=== PATIENT | male | born 1965 | race Caucasian/White ===

== ENCOUNTER 2020-06-29 12:27 | Outpatient (REF) | payer BC, SELFPAY ==
[2020-06-29 14:01] LABS: MANUAL DIFF FLAG NO
[2020-06-29 14:12] LABS: Basophils Absolute Auto 0.1 X10*3/uL (0.0-0.2); Basophils Percent Auto 0.7 % (0-2); Eosinophils Absolute Auto 0.2 X10*3/uL (0.0-0.4); Eosinophils Percent Auto 2.9 % (0-4); Hematocrit 44.9 % (42-52); Hemoglobin 14.7 g/dl (14.0-18.0); Imm Gran Abs Auto 0.03 X10*3/uL (0.00-0.03); Imm Gran Pct Auto 0.4 % (0.0-0.4); Lymphocytes Percent Auto 24.9 % (20-40); Mean Corpuscular HGB Conc 32.7 g/dl (31.0-36.0); Mean Corpuscular Hemoglobin 31.5 pg (27.0-33.0); Mean Corpuscular Volume 96.4 fL (80-98); Mean Platelet Volume 11.6 fL (9.4-12.4); Monocytes Absolute Auto 0.8 X10*3/uL (0.1-1.2); Monocytes Percent Auto 9.9 % (2-11); Neutrophils Percent Auto 61.2 % (45-73); Platelet Count 200 X10*3/uL (160-400); Red Blood Count 4.66 X10*6/uL (4.60-5.80); Red Cell Distribution Width 12.6 % (11.0-16.0); White Blood Count 8.2 X10*3/uL (4.8-10.8)
[2020-06-29 14:39] LABS: Glucose Urine UA NEG (NEG); Leukocyte Esterase Urine NEG (NEG); Nitrite Urine NEG (NEG); Urine Blood NEG (NEG); Urine Ketones NEG (NEG); Urine Protein NEG (NEG-TRACE)
[2020-06-29 14:40] LABS: Appearance Urine CLEAR; Color Urine YELLOW
[2020-06-29 14:50] LABS: Alanine Aminotransferase 31 U/L (0-40); Alkaline Phosphatase 84 U/L (39-117); Anion Gap 12 (12-20); Aspartate Amino Transferase 19 U/L (5-37); Bilirubin Total 0.4 mg/dL (0.0-1.0); Blood Urea Nitrogen 14 mg/dL (9-16); Carbon Dioxide 31 mmol/L (22-29); Chloride 101 mmol/L (96-108); Cholesterol 177 mg/dL; Estimated Glomerular Filt Rate > 60; Glucose Random 100 mg/dL (60-115); HDL Cholesterol 44 mg/dL; LDL Cholesterol Calculated 93 mg/dl; Potassium 4.9 mmol/l (3.3-5.1); Sodium 139 mmol/L (135-145); Total Protein 7.2 g/dL (6.5-8.0); Triglycerides 201 mg/dL
[2020-06-29 14:58] LABS: Free T4 (Free Thyroxine) 0.78 ng/dL (0.71-1.85); Prostate Specific Antigen 1.94 ng/mL (<0.05-4.0)
== END 2020-06-29 12:28 | disposition home or self-care (01) ==
LOC: HO.LAB 12:27
PROVIDERS: PCP Internal Medicine; Visit Provider Internal Medicine
DX: Z00.00 Encounter for general adult medical examination without abnormal findings (principal); E06.9 Thyroiditis, unspecified
CPT/HCPCS: 36415; 80053; 80061; 81003; 84153; 84439; 84443; 85025

== ENCOUNTER 2021-04-12 11:35 | Outpatient (REF) | payer BC, SELFPAY ==
[2021-04-12 13:21] LABS: Erythrocyte Sedimentation Rate 51 MM/HR (0-15)
[2021-04-12 13:23] LABS: Uric Acid 6.4 mg/dL (3.4-7.0)
[2021-04-12 13:35] LABS: Rheumatoid Factor 51.7 IU/mL (<15.0)
[2021-04-13 13:37] LABS: CRP High Sensitivity >10.0 mg/L
[2021-04-17 14:37] LABS: Anti Nuclear Antibody Pattern Nuclear, Homogeneous; Anti Nuclear Antibody Screen POSITIVE (NEGATIVE)
[2021-04-18 15:06] LABS: HLA B27 Negative (Negative)
== END 2021-04-12 11:36 | disposition home or self-care (01) ==
LOC: HO.LAB 11:35
PROVIDERS: PCP Internal Medicine; Visit Provider Physician Assistant Medical
DX: M25.541 Pain in joints of right hand (principal)
CPT/HCPCS: 36415; 84550; 85652; 86038; 86039; 86141; 86431; 86812

== ENCOUNTER 2022-03-01 06:02 | Emergency (ER) | payer BC, SELFPAY ==
--- NOTE | ~2022-03-01 | XR_ITS ---
EXAMINATION: XR ELBOW, LEFT CLINICAL INFORMATION: Pain. COMPARISON: None TECHNIQUE: AP, lateral, and oblique views of the left elbow. FINDINGS: Nondisplaced, oblique fracture through the posterior/ulnar aspect of the radial head contacting the articular surface. No dislocation. Mild ulnotrochlear joint space narrowing. Tiny marginal osteophytes. No osseous erosion. Moderate elbow joint effusion. XR/XR elbow LT min 3V IMPRESSION: 1. Nondisplaced, oblique fracture through the posterior/ulnar aspect of the radial head. Moderate elbow joint effusion. 2. Mild osteoarthritis.
[2022-03-01 06:22] VITALS: BP 156/111; PULSE 98; RESP 16; TEMP 36.7; O2SAT 99; BMI 28.5
--- NOTE | 2022-03-01 06:42 | ECG_ITS ---
Test Reason : L ARM PAIN Blood Pressure : / mmHG Vent. Rate : 097 BPM Atrial Rate : 097 BPM P-R Int : 124 ms QRS Dur : 094 ms QT Int : 360 ms P-R-T Axes : 054 -23 -01 degrees QTc Int : 457 ms Sinus rhythm with Premature atrial complexes Moderate voltage criteria for LVH, may be normal variant ( R in aVL , Hugo product ) Borderline ECG No previous ECGs available Referred By: Jordyn Hernandez Electronically Signed By:PRAMOD CLEARY
--- NOTE | 2022-03-01 07:24 | ED.EXTPRO ---
HPI - Extremity Problem General Chief complaint: Extremity Injury, Upper Stated complaint: L elbow locked Time Seen by Provider: 03/01/22 06:41 Source: patient Mode of arrival: ambulatory History of Present Illness HPI Narrative: 56-year-old male with history of hypertension and RA presents for left elbow pain and the sensation that is elbow has ?locked?. Patient denies any traumatic event to that left elbow but does report that he has been off of his RA medication due to a lapse and misunderstanding with his insurance but he is currently restarted his RA medication but did take prednisone during the lapse in medications. He denies any numbness or tingling to the distal hand and is right-hand dominant. Patient denies any headache, dizziness, chest pain/palpitations, and denies any shortness of breath and states that he took his blood pressure medication this morning. Related Data Allergies Allergy/AdvReac Type Severity Reaction Status Date / Time Unable to Assess Allergy Verified 03/01/22 06:41 Review of Systems Review of Systems: Pertinent positives and negatives as stated in HPI 10 point review of systems is otherwise negative. PMFSH Past Medical History Source: nursing notes reviewed Social History Social History Advance Directives: No Advance Directives Information Provided: No Physical Exam Vital Signs: Vital Signs: Last Vital Signs Temp 98.1 F 03/01/22 06:22 Pulse 98 03/01/22 06:22 Resp 16 03/01/22 06:22 BP 156/111 H 03/01/22 06:22 Pulse Ox 99 03/01/22 06:22 O2 Del Method 03/01/22 06:22 BMI result Body Mass Index 28.5 VITAL SIGNS: Reviewed. GENERAL: Well developed, well nourished, in no acute distress. HEAD: Normocephalic/atraumatic EYES: PERRLA, EOMI EARS: Ext canals without abnormality OROPHARYNX: no oral lesions noted, posterior pharynx clear LUNGS: Normal breath sounds. No adventitious sounds or accessory muscle use. SpO2<99> CARDIOVASCULAR: Regular rate and rhythm without noted murmurs, no JVD or lower extremity edema. ABDOMEN: Soft, non-tender, non-distended with bowel sounds. MUSCULOSKELETAL: No tenderness, deformities, or effusions noted on gross inspection. EXTREMITIES: No cyanosis, clubbing or edema; LEFT ELBOW: Mild swelling without erythema, distal pulses and sensation are intact.. SKIN: Inspection of the skin reveals no rashes NEUROLOGIC: Alert and oriented x 4. Strength and sensation to light touch were grossly intact x 4. Course Course Course Narrative: 56-year-old male with history and clinical presentation consistent with steroid induced asymptomatic hypertension, patient received additional blood pressure medication here in the emergency room. In addition, on review of imaging studies patient appears to have an oblique fracture of the radial head. Patient was informed of all results and findings and understands that he will need to follow-up with primary care provider, corrections lieutenant, and that he will be provided with a referral to see Orthopedics. MDM - Extremity (Nontraumatic) ECG Data Attestation EKG: I personally reviewed and interpreted this ECG as follows: Prior ECG tracings: not available for review Interpretation: Sinus rhythm, HR-97, no STEMI, RI/QRS/QTC is within normal limits. Discharge Plan Discharge Clinical Impression: Fracture of head of left radius Patient Disposition: Home, Self-Care Additional Instructions: 1. Resume all home medications as prescribed. 2. Apply ice to unexposed skin, 10-15 minutes, 3 to 4 times a day. 3. Keep left upper extremity in the sling at all times and call the office of the orthopedic referral that is provided to you below. 4. Tylenol 1000 mg, orally, every 6 hours as needed for pain control. Do not exceed 4000 mg within 24 hours. Ibuprofen 400 mg, orally with milk or food, every 6 hours as needed for additional pain relief. This medication can be taken with Tylenol. 5. Please call the office of both your primary care provider as well as your corrections lieutenant to inform them of this fracture as there are concerns that this was not due to a traumatic injury. Return to the ER for worsening symptoms. Referrals: Fortino Paris MD [Primary Care Provider] - (Patient has and atraumatic left elbow fracture with history of RA. He has been provided with an orthopedic referral.) Woo Dennis MD [Physician] - (56-year-old male with history of RA, seen and treated for nondisplaced/atraumatic left elbow fracture of the radial head. He was placed in the sling.) [facility] [Outside] Stand Alone Forms: Work/School Release
[2022-03-01] MEDS: Acetaminophen 325 MG TABLET 975 MG PO (07:37)
[2022-03-01] MEDS: amLODIPine Besylate 2.5 MG TABLET 7.5 MG PO (07:37)
[2022-03-01] MEDS: Ketorolac Tromethamine 15 MG/ML VIAL IM (07:38)
[2022-03-01 08:10] VITALS: BP 163/94; PULSE 78; RESP 16
== END 2022-03-01 08:05 | disposition home or self-care (01) ==
PROVIDERS: Emergency Provider Student in an Organized Health Care Education/Training Program; PCP Internal Medicine
DX: S52.125A Nondisplaced fracture of head of left radius, initial encounter for closed fracture (principal); X58.XXXA Exposure to other specified factors, initial encounter; Y93.9 Activity, unspecified; Y92.9 Unspecified place or not applicable; Y99.9 Unspecified external cause status
CPT/HCPCS: 73080; 93005; 96372; 99284; J1885

== ENCOUNTER 2022-03-16 | Outpatient (REF) | payer BC, SELFPAY ==
--- NOTE | ~2022-03-16 | XR_ITS ---
EXAMINATION: XR ELBOW, LEFT CLINICAL INFORMATION: Pain. COMPARISON: Radiographs dated 03/01/2022. TECHNIQUE: AP, lateral, and oblique views of the left elbow. FINDINGS: The bones and soft tissues are normal. No fracture or joint effusion. The radial head fracture is less well appreciated than was seen previously. Alignment is anatomic. Joint spaces are maintained. XR/XR elbow LT min 3V IMPRESSION: The previously described left radial head fracture is not seen with certainty. No significant joint effusion is noted.
== END 2022-03-16 00:01 | disposition home or self-care (01) ==
LOC: HO.HOSX
PROVIDERS: Visit Provider Physician Assistant
DX: M25.522 Pain in left elbow (principal)
CPT/HCPCS: 73080

== ENCOUNTER 2022-04-16 | Outpatient (REF) | payer BC, SELFPAY ==
--- NOTE | ~2022-04-16 | XR_ITS ---
EXAMINATION: XR ELBOW, LEFT CLINICAL INFORMATION: Pain COMPARISON: Previous x-ray March 2022 TECHNIQUE: AP, lateral, and oblique views of the left elbow. FINDINGS: The previously identified radial head fracture is not well appreciated. There may be an oblique nondisplaced fracture of the posterior radial head appreciated on the lateral view only. Bone alignment is normal. There is no joint effusion. XR/XR elbow LT min 3V IMPRESSION: Previously identified radial head fracture not well appreciated.
== END 2022-04-16 00:01 | disposition home or self-care (01) ==
LOC: HO.HOSX
PROVIDERS: Visit Provider Physician Assistant
DX: M25.522 Pain in left elbow (principal)
CPT/HCPCS: 73080

== ENCOUNTER → 2025-01-15 12:51 | Outpatient (REF) | payer BC, SELFPAY ==
--- OUTSIDE RECORDS SUMMARY | 2025-01-15 12:53 | XMS_ITS | Clinical Summary ---
Author Organization [facility] Address [address] [place] [address] Care Team Providers Care Spiral Machine Operator Name Role Phone Fortino Paris MD Primary Care Provider [phone] Allergies No known active allergies Medications losartan (COZAAR) 100 MG tablet Take 100 mg by mouth daily. 8 Active sildenafil (REVATIO) 20 MG tabletIndications: Erectile dysfunction, unspecified erectile dysfunction type Take 3-5 tabs one hour before sexual activity as directed, max 5 tabs per day 50 tablet 2 9 Active sildenafil (VIAGRA) 100 MG tabletIndications: Erectile dysfunction due to arterial insufficiency TAKE 1/2 TO 1 TAB ONE HOUR BEFORE ACTIVITY DIRECTED (MAX 1 TAB PER DAY) 4 tablet 9 9 Active Active Problems No known active problems Family History Medical History Relation Name Comments Arthritis Father Hypertension Father Kidney disease Father Relation Name Status Comments Father Alive Mother Alive Social History Tobacco Use Types Packs/Day Years Used Date Smoking Tobacco: Every Day Smokeless Tobacco: Never Comments:cigar 1-2 day Alcohol Use Standard Drinks/Week Comments Yes 0 (1 standard drink = 0.6 oz pur e alcohol) 40 oz a day Sex and Gender Information Value Date Recorded Sex Assigned at Not on file Legal Sex Male 10:28 AM EDT Gender Identity Not on file Sexual Orientation Not on file Last Filed Vital Signs Vital Sign Reading Time Taken Comments Blood Pressure - - Pulse 68 07/25/2018 1:13 PM EST Temperature - - Respiratory Rate - - Oxygen Saturation - - Inhaled Oxygen Concentration - - Weight 88.5 kg (195 lb) 07/25/2018 1:13 PM EST Height 181.6 cm (5' 11.5 ) 07/25/2018 1:13 PM ES T Body Mass Index 26.82 07/25/2018 1:13 PM EST Plan of Treatment Health Maintenance Due Date Last Done Comments Hepatitis C Virus Screening 1963 HIV Screening 1976 DTaP/Tdap/Td Vaccines (1 - Tdap) 1982 Colonoscopy 2008 Pneumococcal Vaccines 50+ (1 of 1 - PCV) 2013 Zoster (Shingles) Vaccine (1 of 2) 2013 COVID-19 Vaccine (1 - 2023-2 5 season) 2024 Influenza Vaccine 01/29/2025 RSV Vaccine 60 years and old er and Patients (1 - 1-dose 75+ series) 2038 Hepatitis B Vaccines Aged Out No long er eligible based on patient's age to complete [place] [id number] [facility] - O Care Teams Spiral Machine Operator Relationship Specialty Start Date End Date Fortino Paris MD [address] [place] [address] [place] [id number] PCP - General 12/09/17
--- OUTSIDE RECORDS SUMMARY | 2025-01-15 12:53 | XMS_ITS | Patient Health Record ---
Author Organization [facility] Address [address] [place] [address] Care Team Providers Care Tubing Machine Tender Name Role Phone Raina (RETIRED) Fortino GOODE Primary Care Provide r Kuldip Perdomo Jr Unavailable [phone] Reason For Referral No Information Medications Medication SIG (Take, Route, Fr equency, Duration) Notes Start Date End Date Status Losartan Potassium A ctive MoviPrep 100 GM as directed before c olonoscopy Orally for 1 dose 09/02/2013 07/01/2024 Active Aspir-81 81mg Active Problems Problem Type SNOMED Code ICD Code Onset Dates Problem Status W/U Status Risk Notes Problem Rectal bleeding (29090086) Rectal bleeding (569.3) Active confirmed Problem Encounter for long-term (current) use of aspirin (V58.66) Active confirmed Plan Of Treatment Future Test Test Name Order Date COLONOSCOPY 09/02/2013 Insurance Providers Payer Name Payer Address Payer Phone Subscriber Number Group Number Insured Name Patient Relationship to Insured Coverage Start Date Coverage End Date [facility] [address] [place], [place] [id number] EMERALD SPIVEY Self - patient is the insured Medical (General) History Medical History History ICD Code Denies [place],DM,CVA,Lung disease,renal dise ase Surgical History Surgery Date(Month/Year) cyst removal
--- OUTSIDE RECORDS SUMMARY | 2025-01-15 12:53 | XMS_ITS | Clinical Summary ---
Author Organization [facility] Address [address] [place] [address] Phone Care Team Providers Care Dance Coach Name Role Phone Fortino Paris MD Primary Care Provider Allergies No known active allergies Medications losartan (COZAAR) 100 MG tablet Take 1 tablet by mouth every morning. 05/31/20 23 Active therapeutic multivitamin tablet Take 1 tablet by mouth daily. Active meloxicam (MOBIC) 15 MG tabletIndicatio ns:Rheumatoid arthritis involving multiple sites with positive rheumatoid factor Take 1 tablet (15 mg total) by mouth daily. Take 1 tab daily with food as needed 30 tablet 1 10/10/19 25 Active gabapentin (NEURONTIN) 100 MG capsuleIndicati ons:Neuropathy of both feet Take 1 capsule nightly 30 capsule 2 10/10/19 25 Active Additional Information Patient not taking.Reported on 01/08/2025 RINVOQ 15 mg ER 24 hr tabletIndicatio ns:Rheumatoid arthritis involving multiple sites with positive rheumatoid factor TAKE 1 TABLET BY MOUTH 1 TIME A DAY 30 tablet 2 01/06/20 25 Active upadacitinib (RINVOQ) 15 mg ER 24 hr tabletIndicatio ns:Rheumatoid arthritis involving multiple sites with positive rheumatoid factor Take 1 tablet (15 mg total) by mouth daily. 30 tablet 2 10/10/19 25 025 Discontinued Active Problems Problem Noted Date Diagnosed Date High blood triglycerides 01/08/2025 Assessment & Plan (01/12/2025 2:20 PM EDT): Adhere to Mediterranean diet to low triglycerides and get the lipid profile repeated within the next 6 months-if ongoing hypertriglyceridemia may need to consider pharmacologic therapy Arrhythmia 01/08/2025 Assessment & Plan (01/12/2025 2:19 PM EDT): Due to intermittent irregularly irregular heart rate I requested formal EKG to make sure that she does not suffer from dangers rhythm that may put him at an increased risk for stroke and heart attack. long-term current use of upadacitinib 10/09/2024 Assessment & Plan (01/08/2025 2:52 PM EDT): Hold Rinvoq (upadacitinib) whenever running fever, feeling sick or taking antibiotics. Complete entire course of antibiotic at least 48 hours after the last dose to make sure that infection does not recur. Monitor for abdominal pain, nausea, vomiting,, diarrhea, weakness, skin rash. Return for monitoring labs every 3-4 months-standing orders in [facility]. 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 Assessment & Plan (10/09/2024 5:20 PM EDT): Hold Rinvoq (upadacitinib) whenever running fever, feeling sick or taking antibiotics. Complete entire course of antibiotic at least 48 hours after the last dose to make sure that infection does not recur. Monitor for abdominal pain, nausea, vomiting,, diarrhea, weakness, skin rash. Return for monitoring labs every 3-4 months-standing orders in [facility]. Make sure to inform any new VALDEMAR GOODE, AGRICULTURAL EQUIPMENT OPERATOR about chronic therapy with Rinvoq particularly in emergency situations. 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 Remember to take it always with food. Favor topical over oral preparations. Assessment & Plan (10/09/2024 5:21 PM EDT): Take the lowest dose, with least frequency, for shortest time. Remember to take it always with food. Favor topical over oral preparations. 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 He reports no episodes of active joint swelling redness or hot feeling. He tolerates Rinvoq 15 mg daily though admits to neuropathy affecting both feet that is tolerable. Continue joint protection, energy conservation techniques. Avoid falls, injuries, overuse and sick contacts. Gentle, regular exercise reviewed. Get monitoring labs today and prior to follow-up visit in 4 months-standing orders in [employer]. Call if problems or questions in the interim Assessment & Plan (10/09/2024 5:18 PM EDT): Clinically appears stable. Labs pending from blood draw prior to entering the exam room. He reports no episodes of active joint swelling redness or hot feeling. He tolerates Rinvoq 15 mg daily though admits to neuropathy affecting both feet that is tolerable. Continue joint protection, energy conservation techniques. Avoid falls, injuries, overuse and sick contacts. Gentle, regular exercise reviewed. Return for monitoring labs & follow-up visit in 3 months-standing orders in [facility]. Call if problems or questions in the interim Neuropathy of both feet 10/09/2024 Assessment & Plan (01/08/2025 2:52 PM EDT): He is willing to retry 100 mg gabapentin nightly to see how it may help him as long as he does not have the side effects. I have informed him that it may take 6-8 weeks for the full effect. Assessment & Plan (10/09/2024 5:21 PM EDT): He is willing to retry 100 mg gabapentin nightly to see how it may help him as long as he does not have the side effects. I have informed him that it may take 6-8 weeks for the full effect. Primary osteoarthritis involving multiple joints 12/08/2023 Assessment & Plan (01/08/2025 2:52 PM EDT): Continue joint protection, energy conservation. Gentle, regular exercise routine. Avoid falls, injuries, overuse. Keep body weight in ideal range for his height. He may benefit from topical cream such as Arnica, Biofreeze, Aspercreme versus medicated patches such as salonpas, icy hot patch 2-3 times daily and if necessary at bedtime x 3 weeks. If swelling accompanies the pain okay to continue meloxicam otherwise switch over to Tylenol and as above topical products. Assessment & Plan (10/09/2024 5:22 PM EDT): Continue joint protection, energy conservation. Gentle, regular exercise routine. Avoid falls, injuries, overuse. Keep body weight in ideal range for his height. He may benefit from topical cream such as Arnica, Biofreeze, Aspercreme versus medicated patches such as salonpas, icy hot patch 2-3 times daily and if necessary at bedtime x 3 weeks. If swelling accompanies the pain okay to continue meloxicam otherwise switch over to Tylenol and as above topical products. Assessment & Plan (12/08/2023 3:49 PM EDT): Osteoarthritis in multiple joints most bothersome in his hands after a busy day at work. He takes meloxicam once a day which helps. 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 He has no active synovitis or swelling. Encounters Date Type Department Care Team Description 01/08/2025 3:22 PM EDT - 01/08/2025 11:59 PM EDT Hospital Encounter [facility] [address] [place] [id number] Tonja Agosto MD Discharge Disposition: Home or Self Care 01/08/2025 2:30 PM EDT Office Visit [facility] [address] [place] [phone] Tonja Agosto MD Rheumatoid arthritis involving multiple sites with positive rheumatoid factor (Primary Dx); Primary osteoarthritis involving multiple joints; terminal worker current use of upadacitinib; long-term current use of non-steroidal anti-inflammatories (NSAID); Neuropathy of both feet; High blood triglycerides; Cardiac arrhythmia, unspecified cardiac arrhythmia type 01/04/2025 Refill [facility] [address] [place] [address] Tonja Agosto MD Medication Refill from Last 3 Months Family History Relation Status Comments Father Social History Tobacco Use Types Packs/Day Years Used Date Smoking Tobacco: Every Day Cigars Smokeless Tobacco: Never Tobacco Cessation:Ready to Q uit: Not Asked; Counseling Given: Not Answered Alcohol Use Standard Drinks/Week Comments Yes 0 (1 standard drink = 0.6 oz pur e alcohol) Weekends only Education Answer Date Recorded Are you interested in more education? Not on tatyana e 01/21/2023 Are you concerned about learning? Not on file 01/21/2023 No 01/21/2023 No 01/21/2023 Digital Access Answer Date Recorded No 01/21/2023 No 01/21/2023 Reliable internet access at home? Not on file 01/21/2023 Device with a working camera? Not on file Sex and Gender Information Value Date Recorded Sex Assigned at Not on file Legal Sex Male 2:20 PM EDT Gender Identity Not on file Sexual Orientation Not on file Last Filed Vital Signs Vital Sign Reading Time Taken Comments Blood Pressure 130/80 01/08/2025 2:37 PM EDT Pulse 51 01/08/2025 2:37 PM EDT Temperature - - Respiratory Rate - - Oxygen Saturation 98% 01/08/2025 2:37 PM EDT Inhaled Oxygen Concentration - - Weight 90.5 kg (199 lb 9.6 oz) 01/08/2025 2:37 P M EDT Height 182.9 cm (6') 01/08/2025 2:37 PM EDT Body Mass Index 27.07 01/08/2025 2:37 PM EDT Plan of Treatment Upcoming Encounters Date Type Department Care Team (Late st Contact Info) Description 05/12/2025 2:00 PM EST Office Visit [facility] [address] [place] [address] Tonja Agosto MD [address] [place] [address], [address] [place] [address] [email or web address] Health Maintenance Due Date Last Done Comments Adult Td,Tdap Booster 1963 DEPRESSION SCREENING 1975 HIV ONE-TIME SCREENING (18-65 YEARS) 1981 PNEUMOCOCCAL VACCINES (50+ years) (1 of 2 - PCV) 1982 ZOSTER VACCINES (1 of 2) 1982 COLOGUARD 2008 COLONOSCOPY 2008 COLORECTAL CANCER SCREENING 2008 FIT TEST 2008 FOBT 2008 SIGMOIDOSCOPY 2008 VIRTUAL COLONOSCOPY 2008 RSV VACCINE (1 - Risk 60-74 years 1-dose series) 2023 COVID-19 VACCINE ( season) 2024 04/24/2021, 08/11/2020, 07/14/2020 SMOKING Hx and SMOKELESS TOBACCO SCREENING 10/09/2025 10/09/2024 CREATININE LEVEL 01/08/2026 01/08/2025, 05/2025, 06/08/2024, Additional history exists POTASSIUM LEVEL 01/08/2026 01/08/2025, 09/29, 06/08/2024, Additional history exists SCREENING FOR DIABETES 01/09/2028 01/08/2025 LIPID PANEL 10/09/2029 10/09/2024 HEPATITIS C SCREENING Completed 12/05/2023 HEPATITIS A VACCINES Aged Out No long er eligible based on patient's age to complete this topic HIB VACCINES Aged Out No longer eligi ble based on patient's age to complete this topic MENINGOCOCCAL VACCINES (ACWY) Aged Out No longer eligible based on patient's age to complete this topic MENINGOCOCCAL VACCINES (B) Aged Out N o longer eligible based on patient's age to complete this topic Medical Devices Not on file Procedures Procedure Name Priority Date/Time Associated Diagnosis Comments COMPREHENSIVE METABOLIC PANEL Routine 01/08/2025 3:24 PM EDT Rheumatoid arthritis involving multiple sites with positive rheumatoid factor Primary osteoarthritis involving multiple 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 long-term current use of non-steroidal anti-inflammatories (NSAID) C-REACTIVE PROTEIN Routine 01/08/2025 3: 24 PM EDT Rheumatoid arthritis involving multiple sites with positive rheumatoid factor Primary osteoarthritis involving multiple 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 long-term current use of non-steroidal anti-inflammatories (NSAID) SEDIMENTATION RATE (ESR) Routine 01/08/2025 3:24 PM EDT Rheumatoid arthritis involving multiple sites with positive rheumatoid factor Primary osteoarthritis involving multiple joints long-term current use of upadacitinib long-term current use of non-steroidal anti-inflammatories (NSAID) CBC AND DIFFERENTIAL Routine 01/08/2025 3:24 PM EDT Rheumatoid arthritis involving multiple sites with positive rheumatoid factor Primary osteoarthritis involving multiple joints long-term current use of upadacitinib long-term current use of non-steroidal anti-inflammatories (NSAID) LIPID PANEL Routine 10/09/2024 3:22 PM EDT High risk medication use HEPATITIS C ANTIBODY, QUALITATIVE Routine 12/05/2023 9:48 AM EDT Need for hepatitis C screening test from Last 3 Months or Most Recently Relevant to Health Maintenance Results * Comprehensive metabolic panel (01/08/2025 3:24 PM EDT) SODIUM 136 133 - 146 mmol/L [facility] POTASSIUM 4.6 3.3 - 5.1 mmol/L [facility] Comment:Specimen slightly he molyzed, result may be falsely elevated. CHLORIDE 102 96 - 108 mmol/L [facility] CO2 26 21 - 35 mmol/L [facility] BUN 14 6 - 19 mg/dL [facility] CREATININE 1.30 0.5 - 1.5 mg/dL [facility] GLUCOSE 99 70 - 99 mg/dL [facility] ALBUMIN 4.4 3.9 - 4.8 g/dL [facility] TOTAL PROTEIN 7.0 6.5 - 8.0 g/dL [facility] CALCIUM 9.3 8.4 - 10.3 mg/dL [facility] ALKALINE PHOSPHATASE 61 39 - 117 U/L [facility] TOTAL BILIRUBIN 0.5 0.0 - 1.2 mg/dL [facility] AST 35 0 - 37 U/L [facility] ALT 33 0 - 40 U/L [facility] GLOBULIN 2.6 1 - 4.8 g/dL [facility] EGFR 63 >59 mL/min/1.7 3m2 [facility] Comment:Estimated glomerular filtration rate calculated using the CKD-EPI refit equation. ANION GAP 13 10 - 20 mmol/L [facility] Blood 01/08/2025 3:24 PM EDT 01/08/2025 3:25 PM EDT Tonja Agosto MD LAB BLOOD ORDERABLES Fin al Result Performing Organization Address City/[facility]/ZIP Co de Phone Number [address] [address] * Sedimentation rate (ESR) (01/08/2025 3:24 PM EDT) ESR 2 0 - 20 mm/h [facility] Blood 01/08/2025 3:24 PM EDT 01/08/2025 3:25 PM EDT us Tonja Agosto MD LAB BLOOD ORDERABLES Fin al Result Performing Organization Address City/[facility]/ZIP Co de Phone Number [address] [address] * (ABNORMAL) CBC and differential (01/08/2025 3:24 PM EDT) WBC 7.17 4.00 - 11.00 K/uL [facility] RBC 4.02(L) 4.50 - 5.90 M/uL [facility] HGB 13.7 13.5 - 17.5 g/dL [facility] HCT 39.8(L) 41.0 - 53.0 % [facility] PLT 152 150 - 450 K/uL [facility] MCV 99.0 80.0 - 100.0 fL [facility] MCH 34.1(H) 27.0 - 31.0 pg [facility] MCHC 34.4 32.0 - 36.0 g/dL [facility] RDW 13.2 11.5 - 14.5 % [facility] MPV 12.4(H) 8.4 - 12.0 fL [facility] NRBC 0.00 0.00 /100 WBCs [facility] ABSOLUTE NRBC 0.00 0.00 K/uL [facility] DIFF METHOD Auto [facility] NEUTS 68.1 48.0 - 76.0 % [facility] LYMPHS 17.7(L) 18.0 - 41.0 % [facility] MONOS 13.1(H) 4.0 - 11.0 % [facility] EOS 0.6 0.0 - 5.0 % [facility] BASOS 0.4 0.0 - 1.5 % [facility] Granulocytes, immature (%) 0.1 0.0 - 0.9 % [facility] ABSOLUTE NEUTS 4.88 1.92 - 7.60 K/uL [facility] ABSOLUTE LYMPHS 1.27 0.72 - 4.10 K/uL [facility] ABSOLUTE MONOS 0.94 0.16 - 1.10 K/uL [facility] ABSOLUTE EOS 0.04 0.00 - 0.50 K/uL [facility] ABSOLUTE BASOS 0.03 0.00 - 0.15 K/uL [facility] Granulocytes, immature 0.01 0.00 - 0.09 K/uL [facility] Blood 01/08/2025 3:24 PM EDT 01/08/2025 3:25 PM EDT us Tonja Agosto MD LAB BLOOD ORDERABLES Fin al Result [address] [address] * C-Reactive Protein (01/08/2025 3:24 PM EDT) C REACTIVE PROTEIN <3.0 0.0 - 4.0 mg/L [facility] Blood 01/08/2025 3:24 PM EDT 01/08/2025 3:25 PM EDT us Tonja Agosto MD LAB BLOOD ORDERABLES Fin al Result Performing Organization Address [facility] [[email or web address]] Co de Phone Number [address] [address] * (ABNORMAL) Lipid panel (10/09/2024 3:22 PM EDT) HDL 49 mg/dL [facility] Comment: Interpretation <40 mg/dL: Low HDL cholesterol (major risk factor for CHD) Greater than or equal to 60 mg/dL: High HDL cholesterol ( negative risk factor for CHD) HDL - cholesterol is affected by a number of factors, e.g. smoking, excerise, hormones, sex and age. CHOLESTEROL 213 0 - 240 mg/dL [facility] TRIGLYCERIDES 371(H) 30 - 160 mg/dL [facility] LDL 90 50 - 129 mg/dL [facility] Comment: LDL levels in terms of risk for coronary heart disease: <100 mg/dL: Optimal 100-129 mg/dL: Near or above optimal 130-159 mg/dL: Borderline high 160-189 mg/dL: High >190 mg/dL: Very High CARDIAC RISK RATIO 4.3 3.4 - 5.0 C [facility] Blood 10/09/2024 3:22 PM EDT 10/09/2024 3:24 PM EDT us Nella Arias MD, MPH LAB BLOOD ORDERABLES Fin al Result Performing Organization Address City/[facility]/ZIP Co de Phone Number [address] [address] * Hepatitis C antibody, qualitative (12/05/2023 9:48 AM EDT) HCV NON-REACTIV E NON-REACTI VE [facility] Blood 12/05/2023 9:48 AM EDT 12/05/2023 10:13 AM EDT us [place] MD LAB BLOOD ORDERABLES nal Result [address] [address] from Last 3 Months or Most Recently Relevant to Health Maintenance [place] [address] [place] [address] [address] [place] [address] [place] [address] [place] [address] PPO EPO [place], [place] [facility] PPO EPO [place], [place] [facility] PPO EPO [facility] PPO EPO Care Teams Dance Coach Relationship Specialty Start Date End Date Fortino Paris MD [address] [place] [address] [place] [address] PCP - General Internal Medicine 12/05/23 Additional Source Comments The information contained in this document represents components of the legal health record. It is not the complete legal health record.[facility]
--- NOTE | 2025-01-15 13:00 | ECG_ITS ---
Test Reason : 149.9 M05.79 Blood Pressure : */* mmHG Vent. Rate : 80 BPM Atrial Rate : 80 BPM P-R Int : 134 ms QRS Dur : 102 ms QT Int : 392 ms P-R-T Axes : 59 -30 7 degrees QTcB Int : 452 ms Sinus rhythm with Premature atrial complexes Left axis deviation Moderate voltage criteria for LVH, may be normal variant ( R in aVL , Hugo product ) Abnormal ECG When compared with ECG of 01-Mar-2022 06:54, Nonspecific T wave abnormality now evident in Lateral leads Referred By: Tonja Agosto Electronically Signed By: CHILO HAYES
== END ==
LOC: HO.CARD 12:51
PROVIDERS: PCP Internal Medicine; Referring Provider Internal Medicine; Visit Provider Internal Medicine Rheumatology
DX: M05.79 Rheumatoid arthritis with rheumatoid factor of multiple sites without organ or systems involvement (principal); E78.1 Pure hyperglyceridemia; I49.9 Cardiac arrhythmia, unspecified
CPT/HCPCS: 93005

== ENCOUNTER → 2025-01-15 13:00 | Outpatient (BNV) | payer BC, SELFPAY | PROVIDERS: PCP Internal Medicine; Referring Provider Internal Medicine; Visit Provider Internal Medicine | DX: I49.1 Atrial premature depolarization (principal) | CPT/HCPCS: 93010 ==

== ENCOUNTER 2025-01-21 13:54 | Outpatient (REF) | payer BC, SELFPAY ==
[2025-01-21 14:46] LABS: MANUAL DIFF FLAG NO
[2025-01-21 15:08] LABS: Hematocrit 38.0 % (42.0-52.0); Hemoglobin 13.8 g/dl (14.0-18.0); Imm Gran Abs Auto 0.09 X10*3/uL (0.00-0.03); Imm Gran Pct Auto 1.2 % (0.0-0.4); Lymphocytes Absolute Auto 0.4 X10*3/uL (1.2-4.9); Mean Corpuscular HGB Conc 36.3 g/dl (31.0-36.0); Mean Corpuscular Hemoglobin 34.8 pg (27.0-33.0); Mean Corpuscular Volume 96.0 fL (80.0-98.0); NRBC Abs Auto 0.000 X10*3/uL (0.0-0.012); NRBC Pct Auto 0.0 /100WBC (0.0-0.2); Platelet Count 173 X10*3/uL (160-400); Red Blood Count 3.96 X10*6/uL (4.60-5.80); White Blood Count 7.6 X10*3/uL (4.8-10.8)
[2025-01-21 15:45] LABS: Alanine Aminotransferase 39 U/L (0-40); Albumin Level 4.5 g/dL (3.5-5.0); Alkaline Phosphatase 93 U/L (39-117); Anion Gap 13 (12-20); Aspartate Amino Transferase 30 U/L (5-37); Blood Urea Nitrogen 29 mg/dL (9-16); Calcium 8.8 mg/dL (8.4-10.2); Carbon Dioxide 25 mmol/L (22-29); Chloride 105 mmol/L (96-108); Estimated Glomerular Filt Rate 52; Magnesium 2.3 mg/dL (1.6-2.6); Potassium 4.1 mmol/L (3.3-5.1); Sodium 139 mmol/L (135-145); Total Protein 7.0 g/dL (6.5-8.0)
[2025-01-21 16:00] LABS: Prostate Specific Antigen 2.05 ng/mL (<0.05-4.0)
[2025-01-22 10:23] LABS: Lyme Abs Screen <0.90 index
== END 2025-01-21 13:55 | disposition home or self-care (01) ==
LOC: HO.LAB 13:54
PROVIDERS: PCP Internal Medicine; Visit Provider Internal Medicine
DX: I10 Essential (primary) hypertension (principal); I49.9 Cardiac arrhythmia, unspecified; I45.9 Conduction disorder, unspecified; M06.9 Rheumatoid arthritis, unspecified; R00.2 Palpitations; Z79.899 Other long term (current) drug therapy; Z13.0 Encounter for screening for diseases of the blood and blood-forming organs and certain disorders involving the immune mechanism; Z13.228 Encounter for screening for other metabolic disorders; Z13.220 Encounter for screening for lipoid disorders; Z12.5 Encounter for screening for malignant neoplasm of prostate; Z13.31 Encounter for screening for depression; Z13.39 Encounter for screening examination for other mental health and behavioral disorders
CPT/HCPCS: 36415; 80053; 83721; 83735; 84153; 84443; 85025; 86617; 86618; 96127

== ENCOUNTER 2025-01-21 13:54 | Outpatient (AMB) | payer BC, SELFPAY ==
--- NOTE | 2025-01-21 10:07 | A.OFFPC_ITS ---
Vital Signs 01/21/25 14:03 Height 6 ft Weight 206 lb BMI 27.9 BP 138/80 Blood Pressure Location Lt brachial Position Sitting Pulse 81 Pulse Source Pulse Oximeter Temp 98.2 F Temp Source Axillary Pulse Oximetry (%) 98 Oxygen Delivery Method Room Air Intake Visit Reasons: Routine/ Dr Paris / F/U from EKG Tearoom Hostess Required: No Accompanied by: Self / Same As Patient Allergies No Known Allergies Allergy (Verified 01/21/25 10:07) Tobacco use date assessed: 01/21/25 Dental Screening Dental Screen Date: 01/21/25 Did you have a dental visit in the last 12 months?: Yes Did you have a dental problem in the last 6 months where you did not have access to dental care?: No HPI HPI Comments History of Present Illness Details The patient is a 59 year old male with a past medical history of RA, hypetension, polyp presenting for follow up CV: on losartan 100mg daily. BP 138/80. Denies chest pain, shortness of breath. He had abnormal EKG performed with intraventricular conduction changes. Frequent pacs/pvcs on exam MSK: RA on rinvoq, meloxicam. ED-on viagra Colonoscopy 2020 ROS CONSTITUTIONAL: Denies weight loss, fever and chills. HEENT: Denies changes in vision and hearing. RESPIRATORY: Denies SOB and cough. CV: Denies palpitations and CP GI: Denies abdominal pain, nausea, vomiting and diarrhea. : Denies dysuria and urinary frequency. MSK: Denies new myalgia and joint pain. SKIN: Denies rash and pruritus. NEUROLOGICAL: Denies headache PSYCHIATRIC: Denies recent changes in mood. PHYSICAL EXAM: GENERAL: Alert and oriented x 3. NAD EYES: EOMI. Anicteric. HENT: Moist mucous membranes. No scleral icterus. No cervical lymphadenopathy. LUNGS: Clear to auscultation bilaterally. CARDIOVASCULAR: Irregular. No murmur. No JVD. ABDOMEN: Soft, non-tender +bs EXTREMITIES: No edema. Non-tender. SKIN: No rashes or lesions. Warm. NEUROLOGIC: No focal neurological deficits. CN II-XII grossly intact PSYCHIATRIC: Cooperative. Appropriate mood and affect [facility] Medical History High blood pressure Rheumatoid arthritis Family History Mother No problems noted. Father No problems noted. Social History Housing: House Patient Tobacco Use Status: Former Tobacco user e-Cigarette/Vaping Use: Former Use service: No Current occupational status: employed Current occupation: data warehouse administrator/ rt hand Cognitive needs: No Hearing needs: No Vision needs: Yes (rx glaases) Questionnaire PHQ-9 Over the last 2 weeks, how often have you been bothered by any of the following problems? 1. Little interest or pleasure in doing things: not at all 2. Feeling down, depressed, or hopeless: not at all 3. Trouble falling or staying asleep, or sleeping too much: not at all 4. Feeling tired or having little energy: not at all 5. Poor appetite or overeating: not at all 6. Feeling bad about yourself - or that you are a failure or have let yourself or your family down: not at all 7. Trouble concentrating on things, such as reading the newspaper or watching television: not at all 8. Moving or speaking so slowly that other people could have noticed. Or the opposite - being so fidgety or restless that you have been moving around a lot more than usual: not at all 9. Thoughts that you would be better off or of hurting yourself in some way: not at all Total score: 0 Depression Screening Interpretation: Negative Depression Screening Done: Yes 87375 - PHQ-9 Billing: Yes Source: Developed by Drs. Tucker Tavera, Dayana Cespedes, Crow Cullen and colleagues, with an educational william from [employer]. Thrive Questionnaire Date Thrive assessed: 01/21/25 I am a: Patient Within the past 12 months, did the food you bought not last and you didn't have the money to get more?: Never true Within the past 12 months, did you worry whether your food would run out before you got money to buy more?: Never true Do you have trouble paying for medicines?: No Do you have trouble getting transportation to medical appointments?: No Do you have trouble paying your heating and electricity bill?: No Do you have trouble taking care of your child, family member or friend?: No Do you have trouble with day-to-day activities such as bathing, preparing meals, shopping, managing finances, etc.?: No Are you currently unemployed and looking for a job?: No Are you interested in more education?: No THRIVE Score: 0 AUDIT C Alcohol Use Questionnaire (AUDIT-C) 1. How often do you have a drink containing alcohol?: Monthly or less 2. How many drinks containing alcohol do you have on a typical day when you are drinking?: 1 or 2 3. How often do you have six or more drinks on one occasion?: Less than monthly Total Score: 2 RICHI-7 AMB Questionnaire RICHI-7 Date RICHI - 7 assessed: 01/21/25 Feeling nervous, anxious, or on edge: 0 = Not at all Not being able to stop or control worryin = Not at all Worrying too much about different things: 0 = Not at all Trouble relaxin = Not at all Being so restless that it is hard to sit still: 0 = Not at all Becoming easily annoyed or irritable: 0 = Not at all Feeling afraid as if something awful might happen: 0 = Not at all Total RICHI-7 score (0-4 normal; 5-9 mild; 10-14 moderate; 15-21 severe): 0 Source: Developed by Drs. Tucker Tavera, Dayana Cespedes, Crow Cullen and colleagues, with an educational william from [employer]. Physical exam (Primary Care) Vital Signs: Last Vital Signs Temp 98.2 F 01/21/25 14:03 Pulse 81 01/21/25 14:03 BP 138/80 01/21/25 14:03 Pulse Ox 98 01/21/25 14:03 Oxygen Delivery Method Room Air 01/21/25 14:03 BMI result Body Mass Index 27.9 Tobacco/Smoking Status: Tobacco use Status Tobacco use date assessed 01/21/25 01/21/25 10:08 Patient Tobacco Use Status Former Tobacco user 01/21/25 14:07 e-Cigarette/Vaping Use Former Use 01/21/25 14:07 PHQ-9: PHQ-9 Score PHQ-9: Total score 0 01/21/25 14:07 Depression Screening Interpretation: Negative Thrive Assessment: Date of Thrive Assessment Date Thrive assessed 01/21/25 01/21/25 10:08 Coding Level of Care Code New Pt Level 4 (37257) Complex EM visit Add On G2211 Diagnoses Primary hypertension I10 Hypertension type: primary hypertension Irregular heart beat I49.9 Intraventricular conduction delay I45.9 Rheumatoid arthritis, involving unspecified site, unspecified whether rheumatoid factor present M06.9 Rheumatoid arthritis location: unspecified site Rheumatoid factor presence: unspecified presence Additional Codes PHQ-9 - 64500 - PHQ-9 Billing: Yes ([id number]) Assessment & Plan Assessment & Plan (1) High blood pressure: Code(s): I10 - Essential (primary) hypertension Category: Medical Qualifiers: Hypertension type: primary hypertension Qualified Code(s): I10 - Essential (primary) hypertension (2) Irregular heart beat: Code(s): I49.9 - Cardiac arrhythmia, unspecified Category: Medical (3) Intraventricular conduction delay: Code(s): I45.9 - Conduction disorder, unspecified Category: Medical (4) Rheumatoid arthritis: Code(s): M06.9 - Rheumatoid arthritis, unspecified Category: Medical Qualifiers: Rheumatoid arthritis location: unspecified site Rheumatoid factor presence: unspecified presence Qualified Code(s): M06.9 - Rheumatoid arthritis, unspecified Plan abnormal ekg, pacs/pvcs-stress test, referral cardiology Labs ordered BP adequately controlled RA continue rinvoq Orders: Orders Complete Blood Count Auto Diff 01/21/25 I10 - Essential (primary) hypertension, M06.9 - Rheumatoid arthritis, unspecified, Z13.0 - Encounter for screening for diseases of the blood and blood-forming organs and certain disorders involving the immune mechanism, Z13.220 - Encounter for screening for lipoid disorders, Z13.228 - Encounter for screening for other metabolic disorders TSH reflex Free T4 01/21/25 I10 - Essential (primary) hypertension, M06.9 - Rheumatoid arthritis, unspecified, R00.2 - Palpitations Lyme IgG/IgM w/reflex to WB 01/21/25 I10 - Essential (primary) hypertension, M06.9 - Rheumatoid arthritis, unspecified, R00.2 - Palpitations LDL Cholesterol Direct 01/21/25 I10 - Essential (primary) hypertension, I49.9 - Cardiac arrhythmia, unspecified CA stress test 01/21/25 I45.9 - Conduction disorder, unspecified Comprehensive Met. Panel 01/21/25 I10 - Essential (primary) hypertension, M06.9 - Rheumatoid arthritis, unspecified, Z13.0 - Encounter for screening for diseases of the blood and blood-forming organs and certain disorders involving the immune mechanism, Z13.220 - Encounter for screening for lipoid disorders, Z13.228 - Encounter for screening for other metabolic disorders Prostate Specific Antigen 01/21/25 I10 - Essential (primary) hypertension, M06.9 - Rheumatoid arthritis, unspecified, Z13.0 - Encounter for screening for diseases of the blood and blood-forming organs and certain disorders involving the immune mechanism, Z13.220 - Encounter for screening for lipoid disorders, Z13.228 - Encounter for screening for other metabolic disorders AMB EKG-In Office 01/21/25 I49.9 - Cardiac arrhythmia, unspecified Magnesium 01/21/25 I10 - Essential (primary) hypertension, I49.9 - Cardiac arrhythmia, unspecified Referrals Cardiology Referral I45.9 - Conduction disorder, unspecified, R94.31 - Abnormal electrocardiogram [ECG] [EKG]
--- OUTSIDE RECORDS SUMMARY | 2025-01-21 13:57 | XMS_ITS | Clinical Summary ---
Author Organization [facility] Address [address] [place] [address] Phone Care Team Providers Care Public Safety Dispatcher Name Role Phone Fortino Paris MD Primary [...] increased risk for stroke and heart attack. detention current use of upadacitinib 10/09/2024 Assessment & Plan (01/08/2025 2:52 PM EDT): Hold Rinvoq (upadacitinib) whenever running fever, feeling sick or taking antibiotics. Complete entire course of antibiotic at least 48 hours after the last dose to make sure that infection does not recur. Monitor for abdominal pain, nausea, vomiting,, diarrhea, weakness, skin rash. Return for monitoring labs every 3-4 months-standing orders in [facility]. Make sure to inform any new VALDEMAR GOODE CUSTOMER SERVICE ASSOCIATE about chronic therapy with Rinvoq particularly in [...] monitoring labs every 3-4 months-standing orders in [facility]. Make sure to inform any new VALDEMAR GOODE, CUSTOMER SERVICE ASSOCIATE about chronic therapy with Rinvoq particularly in emergency situations. buttermaker current use of non -steroidal anti-inflammatories (NSAID) [...] follow-up visit in 4 months-standing orders in [facility]. Call if problems or questions in the [...] follow-up visit in 3 months-standing orders in [facility]. Call if problems or questions in the [...] Encounters Date Type Department Care Team Description 01/19/2025 Telephone [facility] Rheumatology [address] [place] [address] [place] [address] Nella Arias MD, MPH Medication Question 01/18/2025 Orders Only [facility] Rheumatology [address] [place] [address] [place] [address] Catalina Antonio MA Rheumatoid arthritis involving multiple sites with positive rheumatoid factor; High blood triglycerides; Cardiac arrhythmia, unspecified cardiac arrhythmia type 01/08/2025 3:22 PM EDT - 01/08/2025 11:59 PM EDT Hospital Encounter [facility] [address] [place] [address] Tonja Agosto MD Discharge Disposition: Home or Self Care 01/08/2025 2:30 PM EDT Office Visit [facility] Rheumatology [address] [place] [address] Tonja Agosto MD Rheumatoid arthritis involving multiple sites with positive rheumatoid factor (Primary Dx); Primary osteoarthritis involving multiple joints; buttermaker current use of upadacitinib; detention current use of non-steroidal anti-inflammatories (NSAID); Neuropathy of both feet; High blood triglycerides; Cardiac arrhythmia, unspecified cardiac arrhythmia type 01/04/2025 Refill [facility] Rheumatology [address] [place] [address] Tonja Agosto MD Medication Refill from Last [...] Upcoming Encounters Date Type Department Care Team (Monster st Contact Info) Description 05/12/2025 2:00 PM EST Office Visit [facility] Rheumatology [address] [place] [address] Tonja Agosto MD [address] [place] [address], [address] [place] [address] [email or web address] Health Maintenance Due Date Last Done Comments [...] Procedure Name Priority Date/Time Associated Diagnosis Comments ECG 12-LEAD Routine 01/15/2025 11:04 AM EDT Rheumatoid arthritis involving multiple sites with positive rheumatoid factor High blood triglycerides Cardiac arrhythmia, unspecified cardiac arrhythmia type COMPREHENSIVE METABOLIC PANEL Routine 01/08/2025 3:24 PM EDT Rheumatoid arthritis involving multiple sites with positive rheumatoid factor Primary osteoarthritis involving multiple joints detention current use of upadacitinib detention current use of non-steroidal anti-inflammatories (NSAID) C-REACTIVE PROTEIN Routine 01/08/2025 3: 24 PM EDT Rheumatoid arthritis involving multiple sites with positive rheumatoid factor Primary osteoarthritis involving multiple joints detention current use of upadacitinib detention current use of non-steroidal anti-inflammatories (NSAID) SEDIMENTATION RATE (ESR) Routine 01/08/2025 3:24 PM EDT Rheumatoid arthritis involving multiple sites with positive rheumatoid factor Primary osteoarthritis involving multiple joints buttermaker current use of upadacitinib detention current use of non-steroidal anti-inflammatories (NSAID) CBC AND DIFFERENTIAL Routine 01/08/2025 3:24 PM EDT Rheumatoid arthritis involving multiple sites with positive rheumatoid factor Primary osteoarthritis involving multiple joints detention current use of upadacitinib buttermaker current use of non-steroidal anti-inflammatories (NSAID) LIPID PANEL Routine 10/09/2024 3:22 PM EDT High risk medication use HEPATITIS C ANTIBODY, QUALITATIVE Routine 12/05/2023 9:48 AM EDT Need for hepatitis C screening test from Last 3 Months or Most Recently Relevant to Health Maintenance Results * (ABNORMAL) ECG 12-LEAD (01/15/2025 11:04 AM EDT) us Tonja Agosto MD ECG ORDERABLES Final Re sult EXTERNAL NON-INTERFACED REF LAB * Comprehensive metabolic panel (01/08/2025 3:24 PM EDT) SODIUM 136 133 - 146 mmol/L [facility] POTASSIUM 4.6 3.3 - 5.1 mmol/L [facility] Comment:Specimen slightly he molyzed, result may be falsely elevated. CHLORIDE 102 96 - 108 mmol/L [facility] CO2 26 21 - 35 mmol/L [facility] BUN 14 6 - 19 mg/dL [facility] CREATININE 1.30 0.5 - 1.5 mg/dL [facility] GLUCOSE 99 70 - 99 mg/dL [facility] ALBUMIN 4.4 3.9 - 4.8 g/dL [facility] TOTAL PROTEIN 7.0 6.5 - 8.0 g/dL [facility] CALCIUM 9.3 8.4 - 10.3 mg/dL [facility] ALKALINE PHOSPHATASE 61 39 - 117 U/L [facility] TOTAL BILIRUBIN 0.5 0.0 - 1.2 mg/dL [facility] AST 35 0 - 37 U/L [facility] ALT 33 0 - 40 U/L [facility] GLOBULIN 2.6 1 - 4.8 g/dL [facility] EGFR 63 >59 mL/min/1.7 3m2 [facility] Comment:Estimated glomerular filtration rate calculated using the CKD-EPI refit equation. ANION GAP 13 10 - 20 mmol/L [facility] Blood 01/08/2025 3:24 PM EDT 01/08/2025 3:25 PM EDT us Tonja Agosto MD LAB BLOOD ORDERABLES Fin al Result [address] [address] * Sedimentation rate (ESR) (01/08/2025 3:24 PM EDT) ESR 2 0 - 20 mm/h [facility] Blood 01/08/2025 3:24 PM EDT 01/08/2025 3:25 PM EDT us Tonja Agosto MD LAB BLOOD ORDERABLES Fin al Result [facility] [address] [place] [address] * (ABNORMAL) CBC and differential (01/08/2025 3:24 PM EDT) WBC 7.17 4.00 - 11.00 K/uL [facility] RBC 4.02(L) 4.50 - 5.90 M/uL [facility] HGB 13.7 13.5 - 17.5 g/dL [facility] HCT 39.8(L) 41.0 - 53.0 % [facility] PLT 152 150 - 450 K/uL [facility] MCV 99.0 80.0 - 100.0 fL [facility] MCH 34.1(H) 27.0 - 31.0 pg [facility] MCHC 34.4 32.0 - 36.0 g/dL [facility] RDW 13.2 11.5 - 14.5 % [facility] MPV 12.4(H) 8.4 - 12.0 fL [facility] NRBC 0.00 0.00 /100 WBCs [facility] ABSOLUTE NRBC 0.00 0.00 K/uL [facility] DIFF METHOD Auto [facility] NEUTS 68.1 48.0 - 76.0 % [facility] LYMPHS 17.7(L) 18.0 - 41.0 % [facility] MONOS 13.1(H) 4.0 - 11.0 % [facility] EOS 0.6 0.0 - 5.0 % [facility] BASOS 0.4 0.0 - 1.5 % [facility] Granulocytes, immature (%) 0.1 0.0 - 0.9 % [facility] ABSOLUTE NEUTS 4.88 1.92 - 7.60 K/uL [facility] ABSOLUTE LYMPHS 1.27 0.72 - 4.10 K/uL [facility] ABSOLUTE MONOS 0.94 0.16 - 1.10 K/uL [facility] ABSOLUTE EOS 0.04 0.00 - 0.50 K/uL [facility] ABSOLUTE BASOS 0.03 0.00 - 0.15 K/uL [facility] Granulocytes, immature 0.01 0.00 - 0.09 K/uL [facility] Blood 01/08/2025 3:24 PM EDT 01/08/2025 3:25 PM EDT Tonja Agosto MD LAB BLOOD ORDERABLES Fin al Result [address] [address] * C-Reactive Protein (01/08/2025 3:24 PM EDT) C REACTIVE PROTEIN <3.0 0.0 - 4.0 mg/L [facility] Blood 01/08/2025 3:24 PM EDT 01/08/2025 3:25 PM EDT Tonja Agosto MD LAB BLOOD ORDERABLES Fin al Result Performing Organization Address City/[facility]/ZIP Co de Phone Number [address] [address] * (ABNORMAL) Lipid panel (10/09/2024 3:22 PM EDT) HDL 49 mg/dL [facility] Comment: Interpretation <40 mg/dL: Low HDL cholesterol (major risk factor for CHD) Greater than or equal to 60 mg/dL: High HDL cholesterol ( negative risk factor for CHD) HDL - cholesterol is affected by a number of factors, e.g. smoking, excerise, hormones, sex and age. CHOLESTEROL 213 0 - 240 mg/dL [facility] TRIGLYCERIDES 371(H) 30 - 160 mg/dL [facility] LDL 90 50 - 129 mg/dL [facility] Comment: LDL levels in terms of risk for coronary heart disease: <100 mg/dL: Optimal 100-129 mg/dL: Near or above optimal 130-159 mg/dL: Borderline high 160-189 mg/dL: High >190 mg/dL: Very High CARDIAC RISK RATIO 4.3 3.4 - 5.0 C [facility] Blood 10/09/2024 3:22 PM EDT 10/09/2024 3:24 PM EDT Nella Arias MD, MPH LAB BLOOD ORDERABLES Fin al Result [address] [address] * Hepatitis C antibody, qualitative (12/05/2023 9:48 AM EDT) HCV NON-REACTIV E NON-REACTI VE [facility] Blood 12/05/2023 9:48 AM EDT 12/05/2023 10:13 AM EDT [place] MD LAB BLOOD ORDERABLES Fi nal Result Performing Organization Address [facility] Co de Phone Number [address] [address] from Last 3 Months or Most Recently Relevant to Health Maintenance [place] [address] [address] PPO EPO [facility] [place] [address] [place] [address] [address] [place] [address] PPO EPO [facility] PPO EPO [facility] PPO EPO Care Teams Public Safety Dispatcher Relationship Specialty Start Date End Date Fortino Paris MD [address] [place] [address] [place] [address] PCP - General Internal Medicine 12/05/23 Additional Source Comments The information contained in this document represents components of the legal health record. It is not the complete legal health record.[facility]
--- OUTSIDE RECORDS SUMMARY | 2025-01-21 13:57 | XMS_ITS | Clinical Summary ---
Author Organization [facility] Address [address] [place] [address] Care Team Providers Care Weatherization Coordinator Name Role Phone Fortino Paris MD Primary Care Provider [phone] Allergies No known active allergies Medications losartan [...] complete [place] [address] [facility] - [facility] Care Teams Weatherization Coordinator Relationship Specialty Start Date End Date Fortino Paris MD [address] [place] [address] [place] [address] PCP - General 12/09/17
--- OUTSIDE RECORDS SUMMARY | 2025-01-21 13:57 | XMS_ITS | Patient Health Record ---
Author Organization [facility] Address [address] [place] [address] Care Team Providers Care Switch Technician Name Role Phone Raina (RETIRED) Fortino GOODE Primary Care Provide r Kuldip Perdomo Jr Unavailable [phone] Reason For Referral No Information Medications Medication SIG (Take, Route, Fr equency, Duration) Notes Start Date End Date Status Losartan Potassium A ctive MoviPrep 100 GM as directed before c olonoscopy Orally for 1 dose 09/02/2013 07/01/2024 Active Aspir-81 81mg Active Problems Problem Type SNOMED Code ICD Code Onset Dates Problem Status W/U Status Risk Notes Problem Rectal bleeding (42059424) Rectal bleeding (569.3) Active confirmed Problem Encounter for long-term (current) use of aspirin (V58.66) Active confirmed Plan Of Treatment Future Test Test Name Order Date COLONOSCOPY 09/02/2013 Insurance Providers Payer Name Payer Address Payer Phone Subscriber Number Group Number Insured Name Patient Relationship to Insured Coverage Start Date Coverage End Date [facility] [address] [place], [place] [id number] EMERALD SPIVEY Self - patient is the insured Medical (General) History Medical History History ICD Code Denies [place],DM,CVA,Lung disease,renal dise ase Surgical History Surgery Date(Month/Year) cyst removal
[2025-01-21 14:03] VITALS: BP 138/80; PULSE 81; TEMP 36.8; O2SAT 98; BMI 27.9
== END 2025-01-21 14:36 | disposition home or self-care (01) ==
LOC: HO.HMCHD 13:54
PROVIDERS: PCP Internal Medicine; Visit Provider Internal Medicine
DX: I10 Essential (primary) hypertension (principal); I49.9 Cardiac arrhythmia, unspecified; I45.9 Conduction disorder, unspecified; M06.9 Rheumatoid arthritis, unspecified

== ENCOUNTER → 2025-02-23 07:40 | Outpatient (REF) | payer BC, SELFPAY ==
--- NOTE | 2025-02-23 07:42 | CA_ITS ---
Acquisition Time: 2025-02-23 07:56:37 Total Exercise Time: 00:06:00 Test Indications: ABN EKG Medications: SEE H&P Protocol: MAURY Max HR: 136 BPM 85% of Pred: 159 BPM Max BP: 194/78 mmHG Max Work Load: 7.0 METS Exercise stress test with exercise 6 mins of Maury Protocol, achieving 86% MPHR, without any reports of angina, mild back pain, with isolated PACs, with normotenisve response to exercise- baseline elevated blood pressure at 160/90; highest at 190/100. Without any EKG changes meeting criteria for ischemia. In recovery, pt continued to feel well. BP improved to 150/88. Test reviewed with Dr. Warren. Referred By: Eda Bush Electronically Signed By: Amilcar Garay
--- OUTSIDE RECORDS SUMMARY | 2025-02-23 07:48 | XMS_ITS | Encounter Summary ---
Author Organization [facility] Address [address] [place] [address] Phone Care Team Providers Care Program Coordinator Executive Education Name Role Phone Fortino Paris MD Primary Care Provider Encounter Details Date Type Department Care Team (Late st Contact Info) Description 01/18/2025 Orders Only [facility] Rheumatology [address] [place], [place] [id number] Catalina Antonio MA [address] [place] [address] [email or web address] Rheumatoid arthritis involving multiple sites with positive rheumatoid factor; High blood triglycerides; Cardiac arrhythmia, unspecified cardiac arrhythmia type Social History Tobacco Use Types Packs/Day Years Used Date Smoking Tobacco: Every Day Cigars Smokeless Tobacco: Never Alcohol Use Standard Drinks/Week Comments Yes 0 [...] on file Sexual Orientation Not on file documented as of this encounter Plan of Treatment Upcoming Encounters Date Type Department Care Team (Late st Contact Info) Description 05/12/2025 2:00 PM EST Office Visit [facility] Rheumatology [address] [place] [address] Tonja Agosto MD [address] [facility], [address] [place] [address] [email or web address] documented as of this encounter Procedures Procedure Name Priority Date/Time Associated Diagnosis Comments ECG 12-LEAD Routine 01/15/2025 11:04 AM EDT Rheumatoid arthritis involving multiple sites with positive rheumatoid factor High blood triglycerides Cardiac arrhythmia, unspecified cardiac arrhythmia type documented in this encounter Results * (ABNORMAL) ECG 12-LEAD (01/15/2025 11:04 AM EDT) us Tonja Agosto MD ECG ORDERABLES Final Re sult EXTERNAL NON-INTERFACED REF LAB documented in this encounter Visit Diagnoses Diagnosis Rheumatoid arthritis involving multiple sites with positive rheumatoid factor High blood triglycerides Unspecified disorder of lipoid metabolism Cardiac arrhythmia, unspecified cardiac arrhythmia type documented in this encounter Care Teams Program Coordinator Executive Education Relationship Specialty Start Date End Date Fortino Paris MD [address] [place] [address] [place] [address] PCP - General Internal Medicine 12/05/23 documented as of this encounter Additional Source Comments The information contained in this document represents components of the legal health record. It is not the complete legal health record.[facility]
--- OUTSIDE RECORDS SUMMARY | 2025-02-23 07:48 | XMS_ITS | Clinical Summary ---
Author Organization [facility] Address [address] [place] [address] Care Team Providers Care Industrial Chemist Name Role Phone Fortino Paris MD Primary Care Provider [phone] Allergies No known active allergies Medications losartan [...] complete [place] [id number] [facility] - [facility] Care Teams Industrial Chemist Relationship Specialty Start Date End Date Fortino Paris MD [address] [place] [address] [place] [address] PCP - General 12/09/17
--- OUTSIDE RECORDS SUMMARY | 2025-02-23 07:48 | XMS_ITS | Clinical Summary ---
Author Organization [facility] Address [address] [place] [address] Phone Care Team Providers Care Processing Operator Name Role Phone Fortino Paris MD Primary Care Provider Allergies No known active allergies Medications losartan (COZAAR) 100 MG tablet Take 1 tablet by mouth every morning. 3 Active therapeutic multivitamin tablet Take 1 tablet by mouth daily. Active meloxicam (MOBIC) 15 MG tabletIndication s:Rheumatoid arthritis involving multiple sites with positive rheumatoid factor Take 1 tablet (15 mg total) by mouth daily. Take 1 tab daily with food as needed 30 tablet 1 5 Active gabapentin (NEURONTIN) 100 MG capsuleIndicatio ns:Neuropathy of both feet Take 1 capsule nightly 30 capsule 2 5 Active Additional Information Patient not taking.Reported on 01/08/2025 RINVOQ 15 mg ER 24 hr tabletIndication s:Rheumatoid arthritis involving multiple sites with positive rheumatoid factor TAKE 1 TABLET BY MOUTH 1 TIME A DAY 30 tablet 2 5 Active Active Problems Problem Noted Date Diagnosed Date [...] increased risk for stroke and heart attack. skilled nursing current use of upadacitinib 10/09/2024 Assessment & Plan (01/08/2025 2:52 PM EDT): Hold Rinvoq (upadacitinib) whenever running fever, feeling sick or taking antibiotics. Complete entire course of antibiotic at least 48 hours after the last dose to make sure that infection does not recur. Monitor for abdominal pain, nausea, vomiting,, diarrhea, weakness, skin rash. Return for monitoring labs every 3-4 months-standing orders in [facility]. Make sure to inform any new VALDEMAR GOODE, MANAGER BALANCE about chronic therapy with Rinvoq particularly in [...] monitoring labs every 3-4 months-standing orders in [facility]. Make sure to inform any new VALDEMAR GOODE, MANAGER BALANCE about chronic therapy with Rinvoq particularly in emergency situations. terminologist current use of non -steroidal anti-inflammatories (NSAID) [...] follow-up visit in 4 months-standing orders in [facility]. Call if problems or questions in [...] follow-up visit in 3 months-standing orders in [facility]. Call if problems or questions in [...] Encounters Date Type Department Care Team Description 01/22/2025 Documentation [facility] [address] [place] [id number] Charmaine Mcbride RPH 01/19/2025 Telephone [facility]ology [address] [place] [address] [place] [address] Nella Arias MD, MPH Medication Question 01/18/2025 Orders Only [facility] Rheumatology [address] [place] [address] [place] [address] Catalina Antonio MA Rheumatoid arthritis involving multiple sites with positive rheumatoid factor; High blood triglycerides; Cardiac arrhythmia, unspecified cardiac arrhythmia type 01/08/2025 3:22 PM EDT - 01/08/2025 11:59 PM EDT Hospital Encounter [facility] [address] [place] [address] [place] [address] Tonja Agosto MD Discharge Disposition: Home or Self Care 01/08/2025 2:30 PM EDT Office Visit [facility] Rheumatology [address] [place] [address] Tonja Agosto MD Rheumatoid arthritis involving multiple sites with positive rheumatoid factor (Primary Dx); Primary osteoarthritis involving multiple joints; terminologist current use of upadacitinib; skilled nursing current use of non-steroidal anti-inflammatories (NSAID); Neuropathy of both feet; High blood triglycerides; Cardiac arrhythmia, unspecified cardiac arrhythmia type 01/04/2025 Refill [facility] [address] [place] [address] Tonja Agosto MD Medication Refill from Last [...] Description 05/12/2025 2:00 PM EST Office Visit [facility] Rheumatology [address] [place] [address] Tonja Agosto MD [address] [facility], [address] [place] [address] [email or web address] Due Date Last Done Comments [...] VACCINE ( season) 2024 04/24/2021, 08/11/2020, 07/14/2020 INFLUENZA VACCINE (#1) 2025 SMOKING Hx and SMOKELESS TOBACCO SCREENING 10/09/2025 10/09/2024 CREATININE LEVEL 01/08/2026 01/08/2025, 05/2025, 06/08/2024, Additional history exists POTASSIUM LEVEL 01/08/2026 01/08/2025, 0407/2024, 06/08/2024, Additional history exists SCREENING FOR DIABETES [...] rheumatoid factor Primary osteoarthritis involving multiple joints skilled nursing current use of upadacitinib terminologist current use of non-steroidal anti-inflammatories (NSAID) C-REACTIVE PROTEIN Routine 01/08/2025 3: 24 PM EDT Rheumatoid arthritis involving multiple sites with positive rheumatoid factor Primary osteoarthritis involving multiple joints terminologist current use of upadacitinib terminologist current use of non-steroidal anti-inflammatories (NSAID) SEDIMENTATION RATE (ESR) Routine 01/08/2025 3:24 PM EDT Rheumatoid arthritis involving multiple sites with positive rheumatoid factor Primary osteoarthritis involving multiple joints terminologist current use of upadacitinib terminologist current use of non-steroidal anti-inflammatories (NSAID) CBC AND DIFFERENTIAL Routine 01/08/2025 3:24 PM EDT Rheumatoid arthritis involving multiple sites with positive rheumatoid factor Primary osteoarthritis involving multiple joints terminologist current use of upadacitinib terminologist current use of non-steroidal anti-inflammatories (NSAID) LIPID [...] EDT) SODIUM 136 133 - 146 mmol/L [facility] POTASSIUM 4.6 3.3 - 5.1 mmol/L [facility] Comment:Specimen slightly he molyzed, result may be falsely elevated. CHLORIDE 102 96 - 108 mmol/L [facility] CO2 26 21 - 35 mmol/L [facility] BUN 14 6 - 19 mg/dL [facility] CREATININE 1.30 0.5 - 1.5 mg/dL [facility] GLUCOSE 99 70 - 99 mg/dL [facility] ALBUMIN 4.4 3.9 - 4.8 g/dL [facility] TOTAL PROTEIN 7.0 6.5 - 8.0 g/dL [facility] CALCIUM 9.3 8.4 - 10.3 mg/dL [facility] ALKALINE PHOSPHATASE 61 39 - 117 U/L [facility] TOTAL BILIRUBIN 0.5 0.0 - 1.2 mg/dL [facility] AST 35 0 - 37 U/L [facility] ALT 33 0 - 40 U/L [facility] GLOBULIN 2.6 1 - 4.8 g/dL [facility] EGFR 63 >59 mL/min/1.7 3m2 [facility] Comment:Estimated glomerular filtration rate calculated using the CKD-EPI refit equation. ANION GAP 13 10 - 20 mmol/L [facility] Blood 01/08/2025 3:24 PM EDT 01/08/2025 3:25 PM EDT us Tonja Agosto MD LAB BLOOD ORDERABLES Fin al Result [facility] [address] [place] [address] * Sedimentation rate (ESR) (01/08/2025 3:24 PM EDT) ESR 2 0 - 20 mm/h [facility] Blood 01/08/2025 3:24 PM EDT 01/08/2025 3:25 PM EDT us Tonja Agosto MD LAB BLOOD ORDERABLES Fin al Result [facility] [address] [place] [address] * (ABNORMAL) CBC and differential (01/08/2025 3:24 PM EDT) WBC 7.17 4.00 - 11.00 K/uL [facility] RBC 4.02(L) 4.50 - 5.90 M/uL [facility] HGB 13.7 13.5 - 17.5 g/dL [facility] HCT 39.8(L) 41.0 - 53.0 % [facility] PLT 152 150 - 450 K/uL [facility] MCV 99.0 80.0 - 100.0 fL [facility] MCH 34.1(H) 27.0 - 31.0 pg [facility] MCHC 34.4 32.0 - 36.0 g/dL [facility] RDW 13.2 11.5 - 14.5 % [facility] MPV 12.4(H) 8.4 - 12.0 fL [facility] NRBC 0.00 0.00 /100 WBCs [facility] ABSOLUTE NRBC 0.00 0.00 K/uL [facility] DIFF METHOD Auto [facility] NEUTS 68.1 48.0 - 76.0 % [facility] LYMPHS 17.7(L) 18.0 - 41.0 % [facility] MONOS 13.1(H) 4.0 - 11.0 % [facility] EOS 0.6 0.0 - 5.0 % [facility] BASOS 0.4 0.0 - 1.5 % [facility] Granulocytes, immature (%) 0.1 0.0 - 0.9 % [facility] ABSOLUTE NEUTS 4.88 1.92 - 7.60 K/uL [facility] ABSOLUTE LYMPHS 1.27 0.72 - 4.10 K/uL [facility] ABSOLUTE MONOS 0.94 0.16 - 1.10 K/uL [facility] ABSOLUTE EOS 0.04 0.00 - 0.50 K/uL [facility] ABSOLUTE BASOS 0.03 0.00 - 0.15 K/uL [facility] Granulocytes, immature 0.01 0.00 - 0.09 K/uL [facility] Blood 01/08/2025 3:24 PM EDT 01/08/2025 3:25 PM EDT Tonja Agosto MD LAB BLOOD ORDERABLES Fin al Result Performing Organization Address City/[facility]/ZIP Co de Phone Number [address] [address] * C-Reactive Protein (01/08/2025 3:24 PM EDT) C REACTIVE PROTEIN <3.0 0.0 - 4.0 mg/L [facility] Blood 01/08/2025 3:24 PM EDT 01/08/2025 3:25 PM EDT Tonja Agosto MD LAB BLOOD ORDERABLES Fin al Result Performing Organization Address [facility] Co de Phone Number [address] [address] * (ABNORMAL) Lipid panel (10/09/2024 3:22 PM EDT) HDL 49 mg/dL [facility] Comment: Interpretation <40 mg/dL: Low HDL cholesterol (major risk factor for CHD) Greater than or equal to 60 mg/dL: High HDL cholesterol ( negative risk factor for CHD) HDL - cholesterol is affected by a number of factors, e.g. smoking, excerise, hormones, sex and age. CHOLESTEROL 213 0 - 240 mg/dL [facility] TRIGLYCERIDES 371(H) 30 - 160 mg/dL [facility] LDL 90 50 - 129 mg/dL [facility] Comment: LDL levels in terms of risk for coronary heart disease: <100 mg/dL: Optimal 100-129 mg/dL: Near or above optimal 130-159 mg/dL: Borderline high 160-189 mg/dL: High >190 mg/dL: Very High CARDIAC RISK RATIO 4.3 3.4 - 5.0 C [facility] Blood 10/09/2024 3:22 PM EDT 10/09/2024 3:24 PM EDT us Nella Arias MD, MPH LAB BLOOD ORDERABLES Fin al Result [address] [address] * Hepatitis C antibody, qualitative (12/05/2023 9:48 AM EDT) HCV NON-REACTIV E NON-REACTI VE [facility] Blood 12/05/2023 9:48 AM EDT 12/05/2023 10:13 AM EDT us [place] MD LAB BLOOD ORDERABLES Fi nal Result Performing Organization Address [facility] Co de Phone Number [address] [address] from Last 3 Months or Most Recently Relevant to Health Maintenance [place] [address] [place] [address] PPO EPO [facility] [place] [address] [place] [address] PPO EPO [facility] PPO EPO [facility] PPO [facility] [place] [address] [facility] PPO EPO Care Teams Processing Operator Relationship Specialty Start Date End Date Fortino Paris MD [address] [place] [address] [place] [address] PCP - General Internal Medicine 12/05/23 Additional Source Comments The information contained in this document represents components of the legal health record. It is not the complete legal health record.[facility]
--- OUTSIDE RECORDS SUMMARY | 2025-02-23 07:48 | XMS_ITS | Patient Health Record ---
Author Organization [facility] Address [address] [place] [address] Care Team Providers Care Travel Pta Name Role Phone Raina (RETIRED) Fortino GOODE Primary Care Provide r Kuldip Perdomo Jr Unavailable [phone] Reason For Referral No Information Medications Medication SIG (Take, Route, Fr equency, Duration) Notes Start Date End Date Status Losartan Potassium A ctive MoviPrep 100 GM as directed before c olonoscopy Orally for 1 dose 09/02/2013 07/01/2024 Active Aspir-81 81mg Active Problems Problem Type SNOMED Code ICD Code Onset Dates Problem Status W/U Status Risk Notes Problem Rectal bleeding (37864247) Rectal bleeding (569.3) Active confirmed Problem Encounter for long-term (current) use of aspirin (V58.66) Active confirmed Plan Of Treatment Future Test Test Name Order Date COLONOSCOPY 09/02/2013 Insurance Providers Payer Name Payer Address Payer Phone Subscriber Number Group Number Insured Name Patient Relationship to Insured Coverage Start Date Coverage End Date [facility] [address] [place], [place] [id number] EMERALD SPIVEY Self - patient is the insured Medical (General) History Medical History History ICD Code Denies SC,DM,CVA,Lung disease,renal dise ase Surgical History Surgery Date(Month/Year) cyst removal
== END ==
LOC: HO.CARD 07:40
PROVIDERS: PCP Internal Medicine; Visit Provider Internal Medicine
DX: I45.9 Conduction disorder, unspecified (principal)
CPT/HCPCS: 93017

== ENCOUNTER → 2025-02-23 07:42 | Outpatient (BNV) | payer BC, SELFPAY | PROVIDERS: PCP Internal Medicine | DX: I49.1 Atrial premature depolarization (principal) | CPT/HCPCS: 93016; 93018 ==

== ENCOUNTER 2025-03-24 08:51 | Outpatient (AMB) | payer BC, SELFPAY ==
[2025-03-24 09:04] VITALS: BP 150/70; PULSE 68; BMI 27.5
--- NOTE | 2025-03-24 09:04 | MHC.OFFVIS ---
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 He reports no history of heart attacks or stents and generally considers himself healthy, although he is on medication for hypertension. His blood pressure levels have been fluctuating, and his current medication, losartan, may not be adequately controlling his hypertension. The EKG revealed a thickened heart muscle and extra beats, likely due to high blood pressure. The patient denies experiencing chest pain, jaw pain, or left arm pain but reports heavy breathing when climbing stairs. He also has a history of rheumatoid arthritis, for which he takes Rinvoq. Denies any previously diagnosed obstructive sleep apnea. [facility] Medical History High blood pressure Rheumatoid arthritis Family History Mother No problems noted. Father No problems noted. Social History (Updated 03/24/25 @ 09:09 by Sabrina Samano) Housing: House Alcohol intake: current Alcohol intake frequency: a few times a month Alcohol type: beer Patient Tobacco Use Status: Former Tobacco user e-Cigarette/Vaping Use: Former Use service: No Current occupational status: employed Current occupation: warehouse clerk/ rt hand Cognitive needs: No Hearing needs: No Vision needs: Yes (rx glaases) Review of Systems Const Denies weakness ENT Denies dizziness Card Denies chest pain, Denies chest pain with activity, Denies syncope, Denies rapid heart rate, Denies pedal edema, Denies edema, Reports leg edema, Denies lightheadedness, Denies palpitations, Denies dyspnea, Denies dyspnea on exertion and Denies orthopnea Resp Denies cough, Denies dyspnea and Denies dyspnea on exertion GI Denies hematochezia and Denies change in stool character Musc Denies abnormal gait, Reports joint swelling, Denies muscle cramps, Denies muscle weakness, Denies numbness, Denies radiating pain into limb and Denies tingling Neuro Denies abnormal gait, Denies dizziness, Denies syncope, Denies numbness, Denies tingling and Denies weakness Endo Denies palpitations Physical Exam Vital Signs: Last Vital Signs Pulse 68 03/24/25 09:04 BP 150/70 H 03/24/25 09:04 BMI result Body Mass Index 27.5 Const General: comfortable and no acute distress Orientation/consciousness: patient oriented x3 HEENT Other: Unremarkable Head: Yes normal to inspection Neck Neck: Yes normal visual inspection Chest Chest palpation & inspection: normal inspection of the chest Resp Auscultation: clear to auscultation bilaterally Cardio Palpation: normal PMI Heart sounds: S1 normal heart sound present, S2 normal heart sound present, no gallops, no murmurs and no rubs GI Palpation (GI): Soft to palpation Back/Spine/Pelvis Other: unremarkable Skin General skin exam: no rashes or lesions noted Neuro General: patient oriented x3 Extrem General: Yes normal to inspection Psych Mental Status: mental status grossly normal Assessment & Plan Assessment & Plan (1) Primary hypertension: Code(s): I10 - Essential (primary) hypertension Category: Medical Plan: Inadequate control. Add amlodipine. Patient is not doing home blood pressures. (2) LVH (left ventricular hypertrophy): Code(s): I51.7 - Cardiomegaly Category: Medical Plan: Likely all from hypertension. Obtain echocardiogram. (3) PAC (premature atrial contraction): Code(s): I49.1 - Atrial premature depolarization Category: Medical Plan: Could be related to hypertension as well as undiagnosed obstructive sleep apnea. Check sleep study. Plan EKGs shows sinus rhythm at 80/Min; supraventricular ectopy; leftward axis; left ventricular hypertrophy; normal MA and corrected QT. In the stress test, he was able to exercise for 7 METS on Yohan protocol and reached target heart rate. No angina. Hypertensive blood pressure response. No EKG evidence of ischemia. Discussion Notes I discussed with the patient the need for an echocardiogram to evaluate the thickened heart muscle observed on the EKG and the potential need for additional antihypertensive medication. We also talked about conducting a home sleep study to assess for sleep apnea. I advised the patient to follow up in three months to review the results and adjust the treatment plan as necessary. Patient was informed and verbally consented to the use of an ambient scribe for clinic note documentation during this visit. Orders: Orders CA echo transthoracic complete Today I51.7 - Cardiomegaly RT home sleep study Today G47.33 - Obstructive sleep apnea (adult) (pediatric) Medications: New amlodipine 2.5 mg PO DAILY 90 tabs 1RF I51.7 - Cardiomegaly Patient Instructions: - Start the new blood pressure medication as prescribed. - Schedule and complete the echocardiogram and home sleep study. - Follow up in three months for a review of test results and treatment plan adjustments. Coding Level of Care Code New Pt Level 4 (02787) Complex EM visit Add On G2211 Diagnoses Primary hypertension I10 LVH (left ventricular hypertrophy) I51.7 PAC (premature atrial contraction) I49.1
--- OUTSIDE RECORDS SUMMARY | 2025-03-24 10:13 | XMS_ITS | Clinical Summary ---
Author Organization [facility] Address [address] [place] [address] Phone Care Team Providers Care Roll Filler Name Role Phone Fortino Paris MD Primary [...] increased risk for stroke and heart attack. salvage determiner current use of upadacitinib 10/09/2024 Assessment & Plan (01/08/2025 2:52 PM EDT): Hold Rinvoq (upadacitinib) whenever running fever, feeling sick or taking antibiotics. Complete entire course of antibiotic at least 48 hours after the last dose to make sure that infection does not recur. Monitor for abdominal pain, nausea, vomiting,, diarrhea, weakness, skin rash. Return for monitoring labs every 3-4 months-standing orders in [facility]. Make sure to inform any new VALDEMAR GOODE, CLERICAL ADMINISTRATIVE ASSISTANT about chronic therapy with Rinvoq particularly in [...] monitoring labs every 3-4 months-standing orders in [facility]. Make sure to inform any new VALDEMAR GOODE, CLERICAL ADMINISTRATIVE ASSISTANT about chronic therapy with Rinvoq particularly in emergency situations. skilled nursing current use of non -steroidal anti-inflammatories (NSAID) [...] follow-up visit in 4 months-standing orders in [facility]. Call if problems or questions [...] follow-up visit in 3 months-standing orders in [facility]. Call if problems or questions [...] Type Department Care Team Description 01/22/2025 Documentation [facility] [address] [place] [id number] Charmaine Mcbride RPH 01/19/2025 Telephone [facility] Rhe[facility] [address] [place] [address] [place] [address] Nella Arias MD, MPH Medication Question 01/18/2025 Orders Only [facility] Rhe[facility] [address] [place] [address] [place] [address] Catalina Antonio MA Rheumatoid arthritis involving multiple sites with positive rheumatoid factor; High blood triglycerides; Cardiac arrhythmia, unspecified cardiac arrhythmia type 01/08/2025 3:22 PM EDT - 01/08/2025 11:59 PM EDT Hospital Encounter [facility] [address] [place] [address] [place] [address] Tonja Agosto MD Discharge Disposition: Home or Self Care 01/08/2025 2:30 PM EDT Office Visit [facility] Rheumatology [address] [place] [address] Tonja Agosto MD Rheumatoid arthritis involving multiple sites with positive rheumatoid factor (Primary Dx); Primary osteoarthritis involving multiple joints; salvage determiner current use of upadacitinib; skilled nursing current use of non-steroidal anti-inflammatories (NSAID); Neuropathy of both feet; High blood triglycerides; Cardiac arrhythmia, unspecified cardiac arrhythmia type 01/04/2025 Refill [facility] Rheumatology [address] [place] [address] Tonja Agosto MD Medication Refill from Last [...] Description 05/12/2025 2:00 PM EST Office Visit [facility] Rhe[facility]ology [address] [place] [address] Tonja Agosto MD [address], [address] [place] [address] [email or web address] Health Maintenance Due Date Last Done Comments [...] - Risk 60-74 years 1-dose series) 2023 INFLUENZA VACCINE (#1) 2025 COVID-19 VACCINE ( season) 2025 04/24/2021, 08/11/2020, 07/14/2020 SMOKING Hx and SMOKELESS [...] joints skilled nursing current use of upadacitinib salvage determiner current use of non-steroidal anti-inflammatories (NSAID) C-REACTIVE PROTEIN Routine 01/08/2025 3: 24 PM EDT Rheumatoid arthritis involving multiple sites with positive rheumatoid factor Primary osteoarthritis involving multiple joints skilled nursing current use of upadacitinib skilled nursing current use of non-steroidal anti-inflammatories (NSAID) SEDIMENTATION RATE (ESR) Routine 01/08/2025 3:24 PM EDT Rheumatoid arthritis involving multiple sites with positive rheumatoid factor Primary osteoarthritis involving multiple joints salvage determiner current use of upadacitinib salvage determiner current use of non-steroidal anti-inflammatories (NSAID) CBC AND DIFFERENTIAL Routine 01/08/2025 3:24 PM EDT Rheumatoid arthritis involving multiple sites with positive rheumatoid factor Primary osteoarthritis involving multiple joints salvage determiner current use of upadacitinib skilled nursing current use of non-steroidal anti-inflammatories (NSAID) LIPID [...] EDT) SODIUM 136 133 - 146 mmol/L [facility] POTASSIUM 4.6 3.3 - 5.1 mmol/L [facility] Comment:Specimen slightly he molyzed, result may be falsely elevated. CHLORIDE 102 96 - 108 mmol/L [facility] CO2 26 21 - 35 mmol/L [facility] BUN 14 6 - 19 mg/dL [facility] CREATININE 1.30 0.5 - 1.5 mg/dL [facility] GLUCOSE 99 70 - 99 mg/dL [facility] ALBUMIN 4.4 3.9 - 4.8 g/dL [facility] TOTAL PROTEIN 7.0 6.5 - 8.0 g/dL [facility] CALCIUM 9.3 8.4 - 10.3 mg/dL [facility] ALKALINE PHOSPHATASE 61 39 - 117 U/L [facility] TOTAL BILIRUBIN 0.5 0.0 - 1.2 mg/dL [facility] AST 35 0 - 37 U/L [facility] ALT 33 0 - 40 U/L [facility] GLOBULIN 2.6 1 - 4.8 g/dL [facility] EGFR 63 >59 mL/min/1.7 3m2 [facility] Comment:Estimated glomerular filtration rate calculated using the CKD-EPI refit equation. ANION GAP 13 10 - 20 mmol/L [facility] Blood 01/08/2025 3:24 PM EDT 01/08/2025 3:25 PM EDT us Tonja Agosto MD LAB BLOOD ORDERABLES Fin al Result [facility] [address] [place] [address] * Sedimentation rate (ESR) (01/08/2025 3:24 PM EDT) ESR 2 0 - 20 mm/h [facility] Blood 01/08/2025 3:24 PM EDT 01/08/2025 3:25 PM EDT us Tonja Agosto MD LAB BLOOD ORDERABLES Fin al Result [facility] [address] [place] [address] * (ABNORMAL) CBC and differential (01/08/2025 3:24 PM EDT) WBC 7.17 4.00 - 11.00 K/uL [facility] RBC 4.02(L) 4.50 - 5.90 M/uL [facility] HGB 13.7 13.5 - 17.5 g/dL [facility] HCT 39.8(L) 41.0 - 53.0 % [facility] PLT 152 150 - 450 K/uL [facility] MCV 99.0 80.0 - 100.0 fL [facility] MCH 34.1(H) 27.0 - 31.0 pg [facility] MCHC 34.4 32.0 - 36.0 g/dL [facility] RDW 13.2 11.5 - 14.5 % [facility] MPV 12.4(H) 8.4 - 12.0 fL [facility] NRBC 0.00 0.00 /100 WBCs [facility] ABSOLUTE NRBC 0.00 0.00 K/uL [facility] DIFF METHOD Auto [facility] NEUTS 68.1 48.0 - 76.0 % [facility] LYMPHS 17.7(L) 18.0 - 41.0 % [facility] MONOS 13.1(H) 4.0 - 11.0 % [facility] EOS 0.6 0.0 - 5.0 % [facility] BASOS 0.4 0.0 - 1.5 % [facility] Granulocytes, immature (%) 0.1 0.0 - 0.9 % [facility] ABSOLUTE NEUTS 4.88 1.92 - 7.60 K/uL [facility] ABSOLUTE LYMPHS 1.27 0.72 - 4.10 K/uL [facility] ABSOLUTE MONOS 0.94 0.16 - 1.10 K/uL [facility] ABSOLUTE EOS 0.04 0.00 - 0.50 K/uL [facility] ABSOLUTE BASOS 0.03 0.00 - 0.15 K/uL [facility] Granulocytes, immature 0.01 0.00 - 0.09 K/uL [facility] Blood 01/08/2025 3:24 PM EDT 01/08/2025 3:25 PM EDT Tonja Agosto MD LAB BLOOD ORDERABLES Fin al Result Performing Organization Address City/[facility]/ZIP Co de Phone Number [address] [address] * C-Reactive Protein (01/08/2025 3:24 PM EDT) C REACTIVE PROTEIN <3.0 0.0 - 4.0 mg/L [facility] Blood 01/08/2025 3:24 PM EDT 01/08/2025 3:25 PM EDT Tonja Agosto MD LAB BLOOD ORDERABLES Fin al Result Performing Organization Address [facility] Co de Phone Number [address] [phone] * (ABNORMAL) Lipid panel (10/09/2024 3:22 PM EDT) HDL 49 mg/dL [facility] Comment: Interpretation <40 mg/dL: Low HDL cholesterol (major risk factor for CHD) Greater than or equal to 60 mg/dL: High HDL cholesterol ( negative risk factor for CHD) HDL - cholesterol is affected by a number of factors, e.g. smoking, excerise, hormones, sex and age. CHOLESTEROL 213 0 - 240 mg/dL [facility] TRIGLYCERIDES 371(H) 30 - 160 mg/dL [facility] LDL 90 50 - 129 mg/dL [facility] Comment: LDL levels in terms of risk for coronary heart disease: <100 mg/dL: Optimal 100-129 mg/dL: Near or above optimal 130-159 mg/dL: Borderline high 160-189 mg/dL: High >190 mg/dL: Very High CARDIAC RISK RATIO 4.3 3.4 - 5.0 C [facility] Blood 10/09/2024 3:22 PM EDT 10/09/2024 3:24 PM EDT us Nella Arias MD, MPH LAB BLOOD ORDERABLES Fin al Result [address] [address] * Hepatitis C antibody, qualitative (12/05/2023 9:48 AM EDT) HCV NON-REACTIV E NON-REACTI VE [facility] Blood 12/05/2023 9:48 AM EDT 12/05/2023 10:13 AM EDT us [place] Pos[place] MD LAB BLOOD ORDERABLES Fi nal Result Performing Organization Address [facility] Co de Phone Number [address] [address] from Last 3 Months or Most Recently Relevant to Health Maintenance [place] [address] PPO EPO [facility] [place] [address] [address] PPO EPO [facility] PPO EPO [facility] PPO EPO [facility] [place] [id number] [facility] PPO EPO Care Teams Roll Filler Relationship Specialty Start Date End Date Fortino Paris MD [address] [place] [address] [place] [phone] PCP - General Internal Medicine 12/05/23 Additional Source Comments The information contained in this document represents components of the legal health record. It is not the complete legal health record.[facility]
--- OUTSIDE RECORDS SUMMARY | 2025-03-24 10:13 | XMS_ITS | Clinical Summary ---
Author Organization [facility] Address [address] [place] [address] Care Team Providers Care Crimper Operator Name Role Phone Fortino Paris MD Primary Care Provider [phone] Allergies No known active allergies Medications losartan [...] Zoster (Shingles) Vaccine (1 of 2) 2013 RSV Vaccine 60 years and old er and Patients (1 - Risk 60-74 years 1-dose series) 2023 Influenza Vaccine 01/29/2025 COVID-19 Vaccine (1 - 2023-2 5 season) 2025 Hepatitis B Vaccines Aged Out No long er eligible based on patient's age to complete [place] [id number] [facility] Care Teams Crimper Operator Relationship Specialty Start Date End Date Fortino Paris MD [address] [place] [address] [place] [phone] PCP - General 12/09/17
--- OUTSIDE RECORDS SUMMARY | 2025-03-24 10:14 | XMS_ITS | Patient Health Record ---
Author Organization [facility] Address [address] [place] [address] Care Team Providers Care Studio Designer Name Role Phone Raina (RETIRED) Fortino GOODE Primary Care Provide r Kuldip Perdomo Jr Unavailable Reason For Referral No Information Medications Medication SIG (Take, Route, Fr equency, Duration) Notes Start Date End Date Status Losartan Potassium A ctive MoviPrep 100 GM as directed before c olonoscopy Orally for 1 dose 09/02/2013 07/01/2024 Active Aspir-81 81mg Active Problems Problem Type SNOMED Code ICD Code Onset Dates Problem Status W/U Status Risk Notes Problem Rectal bleeding (10783350) Rectal bleeding (569.3) Active confirmed Problem Encounter for long-term (current) use of aspirin (V58.66) Active confirmed Plan Of Treatment Future Test Test Name Order Date COLONOSCOPY 09/02/2013 Insurance Providers Payer Name Payer Address Payer Phone Subscriber Number Group Number Insured Name Patient Relationship to Insured Coverage Start Date Coverage End Date [facility] [address] [place], [place] [id number] EMERALD SPIVEY Self - patient is the insured Medical (General) History Medical History History ICD Code Denies [place],DM,CVA,Lung disease,renal dise ase Surgical History Surgery Date(Month/Year) cyst removal
== END 2025-03-24 09:30 | disposition home or self-care (01) ==
LOC: HO.HCS 08:51
PROVIDERS: PCP Internal Medicine; Visit Provider Internal Medicine
DX: I10 Essential (primary) hypertension (principal); I51.7 Cardiomegaly; I49.1 Atrial premature depolarization
CPT/HCPCS: 99214